=== PATIENT | male | born 1980 | race Caucasian/White ===

== ENCOUNTER 2021-02-13 07:49 | Emergency (ER) | payer OTHER ==
[~2021-02-13] VITALS: Ht 165.1 cm; Wt 108.9 kg
== END 2021-02-13 11:15 | disposition home or self-care (01) ==
LOC: ER1 07:49
DX: U07.1 COVID-19 (principal); E78.5 Hyperlipidemia, unspecified; E11.9 Type 2 diabetes mellitus without complications; I10 Essential (primary) hypertension; Z23 Encounter for immunization
CPT/HCPCS: 99283; J7030; M0245